=== PATIENT | female | born 1990 | race African-American/Black ===

== ENCOUNTER 2017-07-12 09:40 | Inpatient (IN) | payer OTHER ==
[2017-07-12] MEDS ORDERED: LACTATED RINGERS SOLUTION 500 ML IV ONE (11:30)
[2017-07-12] MEDS ORDERED: LACTATED RINGERS SOLUTION 1,000 ML IV SCH (12:30)
[2017-07-12 12:48] VITALS: BMI 24.7
[2017-07-12] MEDS ORDERED: PROMETHAZINE HCL 25 MG/1 ML VIAL ONE (12:57)
[2017-07-12] MEDS ORDERED: BUTORPHANOL TARTRATE 1 MG/ML VIAL ONE ×2 (12:57)
[2017-07-12] MEDS ORDERED: PROMETHAZINE HCL 25 MG/1 ML VIAL IVPB ONE ×2 (13:00→15:45)
[2017-07-12] MEDS ORDERED: BUTORPHANOL TARTRATE 1 MG/ML VIAL IVPB ONE ×2 (13:00→15:45)
[2017-07-12 13:21] LABS: BASO % 0.6 % (0-2.0); EOS % 0.1 % (0-4.5); HEMOGLOBIN 11.3 GM/dL (10.7-15.3); LYMPH % 11.9 % (8-40); MCH 28.2 pg (25.7-33.7); MCHC 32.3 g/dl (32.0-36.0); MEAN CELL VOLUME 87.2 fl (80-96); MEAN PLT VOLUME 6.9 fl (7.5-11.1); MONO % 7.9 % (3.8-10.2); NEUT % 79.5 % (42.8-82.8); PLATELET COUNT 390 K/MM3 (134-434); RBC 4.01 M/mm3 (3.60-5.2); WHITE BLOOD COUNT 12.8 K/mm3 (4.0-10.0)
[2017-07-12 13:34] LABS: INR 0.97 (0.82-1.09)
[2017-07-12 13:37] LABS: ACTIVATED PTT 24.7 SECONDS (26.9-34.4)
[2017-07-12 14:06] LABS: ANION GAP 10 (8-16); BLOOD UREA NITROGEN 6 mg/dL (7-18); CALCIUM 8.9 mg/dL (8.5-10.1); CHLORIDE 106 mmol/L (98-107); CO2 23 mmol/L (21-32); CREATININE 0.6 mg/dL (0.55-1.02); GLUCOSE,RANDOM 68 mg/dL (74-106); SODIUM 139 mmol/L (136-145)
[2017-07-12] MEDS ORDERED: LIDOCAINE HCL 1% PRESERVATIVE FREE - 30ML VIAL ONE (15:24)
[2017-07-12] MEDS ORDERED: OXYTOCIN 20 UNITS in 0.9% NS 20 UNIT/1,000 ML INFUS.BAG IV ONE (15:24)
--- NOTE | 2017-07-12 15:27 | PN ---
Progress Note, Labor Vaginal Exam #1 Labor Exam Date: 07/12/17 Labor Exam Time: 15:26 Heart Rate (range): 140 mod variability Dilatation: 10 Effacement (%): 100 Amniotic Membrane Status: Bulging Presentation: Vertex/Position Station: -1 (Pt in active labor. s/p stadol 1 hour ago. Bulging membranes. AROM, clear fluid. Anticipate . Category 1 tracing)
--- NOTE | 2017-07-12 16:05 | PN ---
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 Nuchal cord x 1 easily reduced. Anterior shoulder and body followed spontaneously and without difficulty. Mouth and nose suctioned with bulb suction. Cord clamped and cut. Placenta delivered spontaneously and without difficulty. 2nd degree laceration repaired with 2.0 chromic with excellent hemostasis and worship of anatomy. Fundus firm. Vault empty. rectal exam wnl.
[2017-07-12] MEDS ORDERED: BISACODYL 10 MG SUPP.RECT RC PRN (16:07)
[2017-07-12] MEDS ORDERED: METHYLERGONOVINE MALEATE 0.2 MG/1 ML AMP IM PRN (16:07)
[2017-07-12] MEDS ORDERED: WITCH HAZEL 50% (TUCKS) 40 PAD/JAR PAD TP PRN (16:07)
[2017-07-12] MEDS ORDERED: BENZOCAINE 28 GM HEMORRHOIDAL OINTMENT TP PRN (16:07)
[2017-07-12] MEDS ORDERED: BENZOCAINE 20% 57 GM BOTTLE TP PRN (16:07)
[2017-07-12] MEDS ORDERED: oxyCODONE HCL 5 MG TABLET PO PRN (16:07)
--- NOTE | 2017-07-12 16:07 | DS ---
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: Vital Signs Temperature 98.1 F 07/12/17 14:00 Pulse Rate 113 H 07/12/17 15:00 Respiratory Rate 18 07/12/17 15:00 Blood Pressure 114/78 07/12/17 15:00 O2 Sat by Pulse Oximetry (%) Constitutional: Yes: Well Nourished, No Distress, Calm Eyes: Yes: WNL, Conjunctiva Clear, EOM Intact HENT: Yes: WNL, Atraumatic, Normocephalic Neck: Yes: WNL, Supple, Trachea Midline Cardiovascular: Yes: WNL, Regular Rate and Rhythm Respiratory: Yes: WNL, Regular, CTA Bilaterally Gastrointestinal: Yes: WNL ...Rectal Exam: Yes: WNL Renal/: Yes: WNL Breast(s): Yes: WNL Musculoskeletal: Yes: WNL Extremities: Yes: WNL Integumentary: Yes: WNL Neurological: Yes: WNL, Alert, Oriented ...Motor Strength: WNL Psychiatric: Yes: WNL, Alert, Oriented Labs: CBC, BMP 07/12/17 13:10 07/12/17 13:10 Delivery - Delivery Vaginal Delivery: No Problems Type of Anesthesia: Local Episiotomy/Laceration: 2nd degree EBL (cc): 300 Delivery, Single - Stages of Labor Date of Delivery: 07/12/17 Placenta: Yes: Spontaneous - 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 You may walk unlimited esequiel of and climb stairs. You may resume driving the car when you feel safe and comfortable behind the wheel. No sexual activity as instructed. Wound care If you have a bandage, leave it on, and keep dry for 48-72 hours. After that time discard the outer bandage. If they are tapes on the skin under the out of bandage leave them in place. They will peel off in the next 7 to 10 days. Do Not Peel them off. You may shower the day after surgery. If there are tapes present on the skin, you may shower over them. Diet There are no dietary restrictions. Eat healthy, high-fiber foods. Drink 6 to 8 glasses of liquid each day. This will assist in keeping your bowels are regular. Pain management You may take Tylenol or acetaminophen or Ibuprofen (for example, Motrin, Advil etc.) from my pain prescription medication is ordered should be taken as prescribed for moderate to severe pain. Call MD for any of the following: Severe pain not relieved by medication Fever of 101 or higher Excessive bleeding or drainage on dressing Inability to urinate Disposition: HOME - Home Medications Comprehensive Discharge Medication List: Ambulatory Orders Pnv No.95/Ferrous Fum/Folic AC [ Vitamin Tablet] 1 each PO DAILY Ibuprofen 800 mg PO TID PRN #90 tablet 07/12/17
[2017-07-12] MEDS ORDERED: OXYTOCIN 20 UNITS in 0.9% NS 20 UNIT/1,000 ML INFUS.BAG IV SCH (16:15)
[2017-07-12] MEDS: FERROUS SO4 325 MG TABLET (FP) PO SCH (17:32)
[2017-07-12] MEDS: IBUPROFEN 600 MG TABLET (FP) PO PRN (21:03)
[2017-07-12] MEDS: ACETAMINOPHEN 325 MG TABLET (FP) PO PRN (21:03)
[2017-07-12 23:46] LABS: COCAINE, UR NEGATIVE ng/ml (CUTOFF=300); OPIATES, URI NEGATIVE ng/ml (CUTOFF=300); PHENCYCLIDINE,URINE NEGATIVE ng/ml (CUTOFF=25); URINE AMPHETAMINES NEGATIVE ng/ml (CUTOFF=500); URINE BARBITURATES NEGATIVE ng/ml (CUTOFF=200); URINE BENZODIAZEPINES NEGATIVE ng/ml (CUTOFF=200)
[2017-07-13 00:57] LABS: METHADONE, UR NEGATIVE ng/ml (CUTOFF=300)
[2017-07-13 08:10] LABS: BASO % 0.3 % (0-2.0); EOS % 0.2 % (0-4.5); HEMATOCRIT 31.1 % (32.4-45.2); HEMOGLOBIN 10.2 GM/dL (10.7-15.3); LYMPH % 15.5 % (8-40); MCH 28.2 pg (25.7-33.7); MCHC 32.8 g/dl (32.0-36.0); MEAN CELL VOLUME 86.1 fl (80-96); MEAN PLT VOLUME 7.3 fl (7.5-11.1); MONO % 8.4 % (3.8-10.2); NEUT % 75.6 % (42.8-82.8); PLATELET COUNT 348 K/MM3 (134-434); RBC 3.61 M/mm3 (3.60-5.2); RDW 13.9 % (11.6-15.6); WHITE BLOOD COUNT 18.4 K/mm3 (4.0-10.0)
[2017-07-13] MEDS: FERROUS SO4 325 MG TABLET (FP) PO SCH ×3 (08:34→17:09)
[2017-07-13] MEDS: PRENATAL VITAMINS W/ FOLIC ACID TABLET (FP) PO SCH (09:46)
--- NOTE | 2017-07-13 13:13 | PN ---
Post Progress Note - Subjective Subjective: Patient feeling well. Voiding without difficulty. No dizzyness, sob, chest pain , headache. Bottle feeding. Pt B+ Type of Delivery: Vital Signs: Vital Signs Temperature 98.4 F 07/13/17 09:57 Pulse Rate 86 07/13/17 09:57 Respiratory Rate 20 07/13/17 09:57 Blood Pressure 133/87 07/13/17 09:57 O2 Sat by Pulse Oximetry (%) 100 07/12/17 16:45 Breast Exam: Yes: Soft Uterus: Yes: Fundus Firm Lochia, amount: Small Perineum: Yes: Laceration Activity: Ambulating - Labs Labs: CBC WBC 18.4 K/mm3 (4.0-10.0) H D 07/13/17 06:30 RBC 3.61 M/mm3 (3.60-5.2) 07/13/17 06:30 Hgb 10.2 GM/dL (10.7-15.3) L 07/13/17 06:30 Hct 31.1 % (32.4-45.2) L 07/13/17 06:30 MCV 86.1 fl (80-96) 07/13/17 06:30 MCH 28.2 pg (25.7-33.7) 07/13/17 06:30 MCHC 32.8 g/dl (32.0-36.0) 07/13/17 06:30 RDW 13.9 % (11.6-15.6) 07/13/17 06:30 Plt Count 348 K/MM3 (134-434) 07/13/17 06:30 MPV 7.3 fl (7.5-11.1) L 07/13/17 06:30 Neutrophils % 75.6 % (42.8-82.8) 07/13/17 06:30 Lymphocytes % 15.5 % (8-40) D 07/13/17 06:30 Monocytes % 8.4 % (3.8-10.2) 07/13/17 06:30 Eosinophils % 0.2 % (0-4.5) D 07/13/17 06:30 Basophils % 0.3 % (0-2.0) 07/13/17 06:30 Problem List - Problems (1) care following vaginal delivery Code(s): Z39.2 - ENCOUNTER FOR ROUTINE FOLLOW-UP Assessment/Plan Pt PPD#1 s/p doing well h/h stable continue routine care plan for discharge tomorrow if stable Dr. Stevens
[2017-07-13] MEDS: IBUPROFEN 600 MG TABLET (FP) PO PRN (20:20)
[2017-07-13] MEDS: ACETAMINOPHEN 325 MG TABLET (FP) PO PRN (20:21)
[2017-07-13] MEDS ORDERED: SENNOSIDES/DOCUSATE COMBO (SENNA PLUS) TABLET (UD) PO PRN (22:00)
[2017-07-14] MEDS: FERROUS SO4 325 MG TABLET (FP) PO SCH (07:55)
[2017-07-14 09:09] VITALS: BP 135/84; PULSE 64; TEMP 98.6
[2017-07-14] MEDS: PRENATAL VITAMINS W/ FOLIC ACID TABLET (FP) PO SCH (09:36)
== END 2017-07-14 11:45 | disposition home or self-care (01) | DRG 560 ==
LOC: JDEL 09:40 → JLDR 12:00 → J3W 16:36 → JLDR 16:42 → J3W 18:04
PROVIDERS: ADMIT Obstetrics & Gynecology; ATTEND Obstetrics & Gynecology
PROC: 10E0XZZ Delivery of Products of Conception, External Approach (ICD-10-PCS; principal; 2017-07-12)
PROC: 0KQM0ZZ Repair Perineum Muscle, Open Approach (ICD-10-PCS; 2017-07-12)
DX: O70.1 Second degree perineal laceration during delivery (principal); O69.81X0 Labor and delivery complicated by cord around neck, without compression, not applicable or unspecified; Z3A.38 38 weeks gestation of pregnancy; Z37.0 Single live birth
CPT/HCPCS: 36415; 59409; 80048; 80307; 85025; 85610; 85730; 86593; 86850; 86900; 86901